=== PATIENT | female | born 1990 | race Caucasian/White ===

== ENCOUNTER 2018-01-20 07:44 | Outpatient (CLI) | payer BC ==
[2018-01-20 11:37] VITALS: BP 132/87; PULSE 100; RESP 16; TEMP 98
--- NOTE | 2018-02-15 08:26 | P.MSEPDOC ---
Presenting Problems - Arrival Data Date of Arrival on Unit: 01/20/18 Time of Arrival on Unit: 07:40 Mode of Transport: Ambulatory Vital Signs - Temperature Temperature: 98.0 F Temperature Source: Oral - Pulse Right Brachial Pulse Rate: 100 Pulse Assessment Method: Automatic Cuff - Respirations Respiratory Rate: 16 Oxygen Delivery Method: Room Air O2 Sat by Pulse Oximetry: 97 - Blood Pressure Right Arm Blood Pressure: 132/87 Blood Pressure Mean: 102 Blood Pressure Source: Automatic Cuff Disposition - Disposition Discharge Date: 01/20/18 Discharge Time: 08:55 I agree with the RN Medical Screening Exam: Yes Risk & Benefit of care provided described in d/c instruction: Yes Diagnosis: FALSE LABOR AT OR AFTER 37 COMPLETED WEEKS OF GESTATION
== END 2018-01-20 08:55 | disposition home or self-care (01) ==
LOC: FBPOP 07:44
PROVIDERS: ATTEND Obstetrics & Gynecology Obstetrics
DX: O47.1 False labor at or after 37 completed weeks of gestation (principal); Z3A.00 Weeks of gestation of pregnancy not specified
CPT/HCPCS: 59025; 99213

== ENCOUNTER 2018-01-20 16:56 | Outpatient (CLI) | payer BC ==
[2018-01-20 18:07] VITALS: PULSE 96; RESP 17; TEMP 98.4
[2018-01-20 18:33] VITALS: BP 134/86
--- NOTE | 2018-02-15 08:23 | P.MSEPDOC ---
Presenting Problems - Arrival Data Date of Arrival on Unit: 01/20/18 Time of Arrival on Unit: 16:56 Mode of Transport: Ambulatory - Complaint OB-Reason for Admission/Chief Complaint: Possible Onset of Labor Comment: pt reports increase in contraction frequency and intensity since being dcd earlier today, cervical exam revealed same exam as when pt left earlier today Medical History - Information : 1 Para: 0 Term: 0 : 0 Abortions: Spontaneous or Elective: 0 Number of Living Children: 0 - Gestational Age Gestational Age by IRMA (wks/days): 39 Weeks and 5 Days Review of Systems - Review of Systems Constitutional: No problems Breast: No problems ENT: No problems Cardiovascular: No problems Respiratory: No problems Gastrointestinal: No problems Genitourinary: No problems Musculoskeletal: No problems Neurological: No problems Skin: No problems Vital Signs - Temperature Temperature: 98.4 F Temperature Source: Oral - Pulse Right Brachial Pulse Rate: 96 Pulse Assessment Method: Automatic Cuff - Respirations Respiratory Rate: 17 Oxygen Delivery Method: Room Air O2 Sat by Pulse Oximetry: 100 - Blood Pressure Right Arm Blood Pressure: 134/86 Blood Pressure Mean: 102 Blood Pressure Source: Automatic Cuff Medical Screen Scoring (Pre) - Cervical Exam Dilation: 1-3 cm = 1 Effacement: More than 50% = 2 Membranes: Intact - Uterine Contractions Frequency: > or = 36 weeks =2 Duration: > 40 seconds = 2 Intensity: N/A - Maternal Vital Signs Maternal Temperature: N/A Maternal Blood Pressure: N/A Signs of Preeclampsia: N/A Maternal Respirations: N/A - Pain Assessment Pain Location and Character: Abdomen Pain Scale Used: Numeric (1 - 10) Pain Intensity: 8 Pain Management Goal: 3 Pain Description: *Acute, Cramping Pain Radiation Location: none Pain Frequency: Intermittent Pain Duration: 1 Pain Duration Units: Hours Pain Behavior: Facial Grimacing Pain Aggravating Factors: Contractions - Maternal Trauma Maternal Trauma: N/A - Assessment Baseline FHR: 145 Heart Rate - NICHD Category: Category I (Normal) = 0 NST: Reactive Position: N/A Station: N/A - Total Score Total Score (Pre): 7 - Level of Risk Level of Risk: Medium (6-9) Physician Notification (Pre) - Physician Notified Physician Notified Date: 01/20/18 Physician Notified Time: 18:17 Physician/Practitioner Notifed:: Dr Coulter Spoke With: Dr Coulter New Order Received: Yes (dc home) - Notification Comment Comment: pt has appt scheduled for tomorrow, 8-[address] Sharp Disposition - Disposition OB Disposition: Discharge to home, Written follow up instructions reviewed Discharge Date: 01/20/18 Discharge Time: 18:20 I agree with the RN Medical Screening Exam: Yes Risk & Benefit of care provided described in d/c instruction: Yes Diagnosis: FALSE LABOR AT OR AFTER 37 COMPLETED WEEKS OF GESTATION
== END 2018-01-20 18:20 | disposition home or self-care (01) ==
LOC: FBPOP 16:56
PROVIDERS: ATTEND Obstetrics & Gynecology
DX: O47.1 False labor at or after 37 completed weeks of gestation (principal); Z3A.39 39 weeks gestation of pregnancy
CPT/HCPCS: 59025; 99213

== ENCOUNTER 2018-01-21 00:26 | Inpatient (IN) | payer BC ==
[2018-01-21] MEDS ORDERED: LACTATED RINGERS 1,000 ML IV SCH (00:45)
[2018-01-21] MEDS ORDERED: LIDOCAINE 1% (PF) 10 MG/ML (30 ML SDV) SQ PRN (00:45)
[2018-01-21] MEDS ORDERED: TERBUTALINE 1 MG/ML VIAL SQ PRN (00:45)
[2018-01-21] MEDS ORDERED: CARBOPROST TROMETHAMINE 250 MCG/ML 1 ML AMP IM PRN (00:45)
[2018-01-21] MEDS ORDERED: OXYTOCIN 10 UNIT/ML 1 ML VIAL IM PRN (00:45)
[2018-01-21] MEDS ORDERED: METHYLERGONOVINE 0.2 MG/ML 1 ML AMP IM PRN (00:45)
[2018-01-21] MEDS ORDERED: PENICILLIN G POTASSIUM 5,000,000 UNIT in DEXTROSE 5% IN WATER 100 ML IVPB ONE ×2 (01:00)
[2018-01-21 01:03] LABS: Basophils % (A) 0 %; Eosinophils # (A) 0.1 k/uL (0-0.7); Eosinophils % (A) 0 %; HCT 44.6 % (34.0-46.0); HGB 15.4 gm/dL (11.4-16.0); Lymphocytes # (A) 2.6 k/uL (1.0-4.8); Lymphocytes % (A) 11 %; MCH 29.6 pg (25.0-35.0); MCHC 34.5 g/dL (31.0-37.0); Mean Platelet Volume 7.6; Monocytes # (A) 0.7 k/uL (0-1.0); Monocytes % (A) 3 %; Neutrophils # (A) 19.4 k/uL (1.3-7.7); Neutrophils % (A) 84 %; Platelet Count 243 k/uL (150-450); RBC 5.19 m/uL (3.80-5.40); RDW 12.5 % (11.5-15.5)
[2018-01-21] MEDS: LACTATED RINGERS 1,000 ML IV SCH ×2 (01:22→04:34)
[2018-01-21] MEDS ORDERED: ROPIVACAINE 100 MG, fentaNYL (PF) 200 MCG in SODIUM CHLORIDE 0.9% 76 ML EPIDURAL ONE (01:24)
[2018-01-21] MEDS: PENICILLIN G POTASSIUM 2,500,000 UNIT in DEXTROSE 5% IN WATER 100 ML IVPB SCH ×4 (05:36→09:30)
[2018-01-21] MEDS ORDERED: OXYTOCIN 20 UNITS/1000 ML NS 1,000 ML IV SCH ×2 (08:00→12:15)
--- NOTE | 2018-01-21 08:18 | P.HPOB ---
History of Present Illness H&P Date: 01/21/18 Chief Complaint: IUP at 39-6/7 weeks, active labor This is a 27-year-old 1 para 0 at 39-6/7 weeks that presents with complaints of regular strong contractions. Patient denies loss of fluid or vaginal bleeding. She has been receiving routine care since the first trimester with myself. On blood work showed a blood type of B+, rubella immune, hepatitis B surface antigen negative, RPR nonreactive, HIV negative, GBS pos. Review of Systems Constitutional: Reports fatigue, Denies chills, Denies fever Respiratory: Denies cough Gastrointestinal: Denies constipation, Denies diarrhea Genitourinary: Reports Past Medical History Past Medical History: Asthma Additional Past Medical History / Comment(s): childhood asthma History of Any Multi-Drug Resistant Organisms: None Reported Past Surgical History: No Surgical Hx Reported Past Anesthesia/Blood Transfusion Reactions: No Reported Reaction Past Psychological History: No Psychological Hx Reported Smoking Status: Never smoker Past Alcohol Use History: None Reported Past Drug Use History: None Reported - Past Family History Mother Family Medical History: No Reported History Medications and Allergies Home Medications Medication Instructions Recorded Confirmed Type Pnv,Calcium 72/Iron/Folic Acid 1 tab PO DAILY 01/20/18 01/21/18 History [ Plus Tablet] Allergies Allergy/AdvReac Type Severity Reaction Status Date / Time No Known Allergies Allergy Verified 01/21/18 00:45 Exam Osteopathic Statement: *. No significant issues noted on an osteopathic structural exam other than those noted in the History and Physical/Consult. Vital Signs Temp Pulse Resp BP Pulse Ox 01/21/18 00:37 97.0 F L 107 H 18 131/90 100 Intake and Output 01/20/18 01/21/18 01/21/18 22:59 06:59 14:59 Intake Total 1100 Output Total 500 Balance 600 Intake: Intake, IV Titration 1100 Amount Lactated Ringers 1,000 ml 1000 @ 125 mls/hr IV [facility] Rx#:[id number] Penicillin G Potassium 5, 100 000,000 unit In Dextrose 5% in Water 100 ml @ 100 mls/hr IVPB ONCE ONE Rx#: [id number] Output: Urine 300 Emesis 200 Other: Weight 86.183 kg - OBG Physical Exam Abdomen: gravid Cervix: 6/100/-2 Uterus: enlarged (appropriate for GA) Results Result Diagrams: 01/21/18 00:50 Abnormal Lab Results - Last 24 Hours (Table) 01/21/18 Range/Units 00:50 WBC 23.0 H (3.8-10.6) k/uL Neutrophils # 19.4 H (1.3-7.7) k/uL Assessment and Plan (1) Term Current Visit: Yes Status: Acute Code(s): Z34.80 - ENCOUNTER FOR SUPRVSN OF NORMAL , UNSP TRIMESTER SNOMED Code(s): 97240097 (2) Positive GBS test Current Visit: Yes Status: Acute Code(s): B95.1 - STREPTOCOCCUS, GROUP B, CAUSING DISEASES CL[facility]SD [facility] SNOMED Code(s): 3152299635542 Plan: Admit to labor and delivery, antibiotics for group beta strep positive, anticipate spontaneous vaginal delivery later today.
[2018-01-21] MEDS ORDERED: WITCH HAZEL 1 EACH MED..PAD TOPICAL PRN (12:02)
[2018-01-21] MEDS ORDERED: BENZOCAINE/MENTHOL SPRAY 1 GM/SPRAY AEROSOL TOPICAL PRN (12:02)
[2018-01-21] MEDS ORDERED: diphenhydrAMINE 25 MG CAP PO PRN (12:02)
[2018-01-21] MEDS ORDERED: SIMETHICONE 80 MG CHEWABLE PO PRN (12:02)
[2018-01-21] MEDS ORDERED: ACETAMINOPHEN TAB 325 MG TAB PO PRN (12:02)
[2018-01-21] MEDS ORDERED: HYDROCORTISONE 2.5% RECTAL CREAM 30 GM TUBE RECTAL PRN (12:02)
[2018-01-21] MEDS ORDERED: ZOLPIDEM 5 MG TAB PO PRN (12:02)
[2018-01-21] MEDS ORDERED: diphenhydrAMINE 50 MG CAP PO PRN (12:02)
[2018-01-21] MEDS ORDERED: diphenhydrAMINE 50 MG/ML 1 ML VIAL IVP PRN ×2 (12:02)
[2018-01-21] MEDS ORDERED: LANOLIN CREAM 5 GM TUBE TOPICAL PRN (12:02)
--- NOTE | 2018-01-21 12:06 | P.PROBDLV ---
Vaginal Delivery Note - . Vaginal Delivery Note: This is a very pleasant 27-year-old 1 para 0 that was admitted overnight for active labor. Patient was started on penicillin G for known group B beta strep positive culture at 36 weeks. Patient progressed slowly through labor eventually Pitocin augmentation of labor was begun, amniotomy was performed and meconium-stained fluid was noted. Patient progressed to complete and had a normal spontaneous vaginal delivery of a viable male infant in the occiput posterior presentation. time of 1132, weight of 7 lbs. 7 oz., Apgars of 8 and 9 at one and 5 minutes respectively. The cord was then doubly clamped and cut pediatrics was in the room to receive the baby given the meconium-stained fluid. No cord blood was needed given she was Rh+. The placenta was then delivered spontaneously intact with three-vessel cord noted. Afterwards the patient's vaginal vault was inspected and a second-degree vaginal laceration with bilateral sulcal tears was noted. This was repaired in the usual fashion with 3-0 Rapide. A left labial laceration was noted and this was repaired with 4-0 chromic in a [id number] suture. Hemostasis was appreciated after all sutures had been placed. Uterus was noted to be firm and below the umbilicus. Estimated blood loss 200 mL, all sponge and needle counts are correct 2 Patient and infant tolerated delivery well and are resting comfortably
[2018-01-21] MEDS: IBUPROFEN 600 MG TAB PO PRN ×2 (16:08→23:36)
[2018-01-22] MEDS: LACTATED RINGERS 1,000 ML IV SCH ×3 (01:47→01:55)
[2018-01-22] MEDS: SENNOSIDES-DOCUSATE SODIUM 1 EACH TAB PO SCH ×3 (01:47→20:42)
[2018-01-22] MEDS: PENICILLIN G POTASSIUM 2,500,000 UNIT in DEXTROSE 5% IN WATER 100 ML IVPB SCH ×4 (01:53→01:54)
--- NOTE | 2018-01-22 10:07 | P.DS ---
Providers Date of admission: 01/21/18 00:41 Expected date of discharge: 01/22/18 Attending physician: Doris Sharp Primary care physician: Stated None - Discharge Diagnosis(es) (1) Term Current Visit: Yes Status: Acute (2) Positive GBS test Current Visit: Yes Status: Acute (3) Status post normal vaginal delivery Current Visit: Yes Status: Acute (4) Occiput posterior presentation of fetus Current Visit: Yes Status: Acute Hospital Course: This is a very pleasant 27-year-old 1 para 0 that was admitted to labor and delivery for active labor on 813. Patient was known GBS positive and started on penicillin G. Patient progressed slowly through labor and eventually Pitocin augmentation of labor was begun and amniotomy was performed revealing meconium-stained fluid. Patient had got an epidural during the labor process. She progressed to complete began pushing and had a normal spontaneous vaginal delivery of a viable male infant in occiput posterior presentation at 1132, weight 7 lbs. 7 oz., Apgars of 8 and 9 at one and 5 minutes respectively. Patient did sustain a second-degree vaginal laceration with bilateral sulcal tears during delivery this was repaired in the usual fashion without difficulty and on day #1 she is feeling well. She states her lochia is moderate , she is struggling with breast-feeding at this time., And is pumping. She is ambulating and voiding without difficulty and tolerating a regular diet without nausea or vomiting. She does wish discharge home later this evening. Patient Condition at Discharge: Good Plan - Discharge Summary New Discharge Prescriptions: No Action Pnv,Calcium 72/Iron/Folic Acid [ Plus Tablet] 1 tab PO DAILY Discharge Medication List Pnv,Calcium 72/Iron/Folic Acid [ Plus Tablet] 1 tab PO DAILY 01/20/18 [ History] Follow up Appointment(s)/Referral(s): Doris Sharp DO [Doctor of Osteopathic Medicine] - 4 Weeks Patient Instructions/Handouts: Vaginal Delivery (DC), Vaginal Delivery (GEN) Activity/Diet/Wound Care/Special Instructions: No tub baths or intercourse until 6 weeks Discharge Disposition: HOME SELF-CARE
[2018-01-22] MEDS: PRENATAL VIT-IRON-FOLIC ACID 1 EACH CAP PO SCH (11:34)
[2018-01-22] MEDS: IBUPROFEN 600 MG TAB PO PRN ×2 (13:08→18:30)
[2018-01-23] MEDS: IBUPROFEN 600 MG TAB PO PRN (07:38)
[2018-01-23] MEDS: SENNOSIDES-DOCUSATE SODIUM 1 EACH TAB PO SCH (07:39)
--- NOTE | 2018-01-23 08:28 | P.PNOBGVD ---
Subjective - Subjective Principal diagnosis: PPD 2 Interval history: Gen. has done well overnight. She was struggling with breast-feeding and decided to stay until day #2. She feels that she is able to work with him a better with an SNS shield and wishes discharge home today. She is ambulating and voiding without difficulty. She is tolerating a regular diet without nausea or vomiting. She denies any concerns with her self. Patient reports: Reports appetite normal, Reports voiding normally, Reports pain well controlled, Reports ambulating normally : doing well, nursing well Objective - Latest Vital Signs Latest vital signs: Vital Signs Temp Pulse Resp BP Pulse Ox 01/23/18 00:00 97.8 F 71 16 120/70 18 15:23 98.7 F 78 18 118/68 99 - Exam Extremities: Present: normal Abdomen: Present: normal appearance, soft Uterus: Present: normal, firm Assessment and Plan (1) Term Current Visit: Yes Status: Acute Code(s): Z34.80 - ENCOUNTER FOR SUPRVSN OF NORMAL , UNSP TRIMESTER SNOMED Code(s): 04636061 (2) Positive GBS test Current Visit: Yes Status: Acute Code(s): B95.1 - STREPTOCOCCUS, GROUP B, CAUSING DISEASES [facility] SNOMED Code(s): 5154971032442 (3) Status post normal vaginal delivery Current Visit: Yes Status: Acute Code(s): TLD5471 - SNOMED Code(s): 451263584 (4) Occiput posterior presentation of fetus Current Visit: Yes Status: Acute Code(s): O64.0XX0 - OBSTRUCTED LABOR DUE TO INCMPL ROTATION OF HEAD, UNSP SNOMED Code(s): 02260826 Plan: We will plan discharge home today, follow-up instructions were reviewed with patient yesterday she can take [id number] Motrin 600 mg every 6 hours for discomfort as needed. She is to follow-up with me in 4 weeks for routine check. She is urged to call if anything should, prior to that appointment and be seen sooner. She states understanding and all questions were answered today.
[2018-01-23 09:31] VITALS: BP 118/67; PULSE 63; RESP 18; TEMP 98.5
[2018-01-23] MEDS: PRENATAL VIT-IRON-FOLIC ACID 1 EACH CAP PO SCH (11:12)
== END 2018-01-23 12:50 | disposition home or self-care (01) | DRG 775 ==
LOC: FBPOP 00:26 → 4FBP 00:41
PROVIDERS: ADMIT Obstetrics & Gynecology; ATTEND Obstetrics & Gynecology Obstetrics
PROC: 10E0XZZ Delivery of Products of Conception, External Approach (ICD-10-PCS; principal; 2018-01-21)
PROC: 0KQM0ZZ Repair Perineum Muscle, Open Approach (ICD-10-PCS; 2018-01-21)
PROC: 00HU33Z Insertion of Infusion Device into Spinal Canal, Percutaneous Approach (ICD-10-PCS; 2018-01-21)
PROC: 3E0R3BZ Introduction of Anesthetic Agent into Spinal Canal, Percutaneous Approach (ICD-10-PCS; 2018-01-21)
DX: O77.0 Labor and delivery complicated by meconium in amniotic fluid (principal); O71.4 Obstetric high vaginal laceration alone; O99.824 Streptococcus B carrier state complicating childbirth; Z3A.39 39 weeks gestation of pregnancy; Z37.0 Single live birth; Z87.09 Personal history of other diseases of the respiratory system
CPT/HCPCS: 59025; 85025; 99213

== ENCOUNTER 2020-11-02 06:00 | Inpatient (IN) | payer BC ==
[2020-11-02 06:36] VITALS: RESP 16
[2020-11-02] MEDS ORDERED: METHYLERGONOVINE 0.2 MG/ML 1 ML AMP IM PRN (06:36)
[2020-11-02] MEDS ORDERED: TERBUTALINE 1 MG/ML VIAL SQ PRN (06:36)
[2020-11-02] MEDS ORDERED: OXYTOCIN 10 UNIT/ML 1 ML VIAL IM PRN (06:36)
[2020-11-02] MEDS ORDERED: LIDOCAINE 0.5% (PF) 5 MG/ML (50 ML SDV) SQ PRN (06:36)
[2020-11-02] MEDS ORDERED: CARBOPROST TROMETHAMINE 250 MCG/ML 1 ML AMP IM PRN (06:36)
[2020-11-02] MEDS ORDERED: OXYTOCIN 30 UNITS/500 ML NS 30 UNIT in SALINE 1 500ML.BAG IV SCH ×2 (06:45→18:00)
[2020-11-02 07:03] LABS: Basophils % (A) 0 %; Eosinophils # (A) 0.1 k/uL (0-0.7); Eosinophils % (A) 1 %; HCT 34.2 % (34.0-46.0); Lymphocytes % (A) 20 %; MCH 29.2 pg (25.0-35.0); MCHC 35.2 g/dL (31.0-37.0); Mean Platelet Volume 7.9; Monocytes # (A) 0.4 k/uL (0-1.0); Monocytes % (A) 4 %; Neutrophils # (A) 7.7 k/uL (1.3-7.7); Neutrophils % (A) 75 %; Platelet Count 229 k/uL (150-450); RBC 4.12 m/uL (3.80-5.40); RDW 13.5 % (11.5-15.5); WBC 10.3 k/uL (3.8-10.6)
[2020-11-02] MEDS: LACTATED RINGERS 1,000 ML IV SCH ×2 (07:11→13:05)
[2020-11-02] MEDS ORDERED: SODIUM CHLORIDE 0.9% 100 ML BAG ONE (13:11)
[2020-11-02] MEDS ORDERED: ROPIVACAINE 5MG/ML 20ML VIAL ONE (13:11)
[2020-11-02] MEDS ORDERED: fentaNYL (PF) 50 MCG/ML 5 ML AMP ONE (13:11)
--- NOTE | 2020-11-02 17:48 | P.HPOB ---
History of Present Illness H&P Date: 11/02/20 Chief Complaint: IUP at 39 weeks This is a 21-year-old at 39 weeks of that presents for elective induction of labor. Patient notes good movement denies contractions or vaginal bleeding. Patient has been receiving routine care which has been essentially uncomplicated. Patient did have COVID-19 during the . On bloodwork patient has a blood type of B+, rubella status immune, B surface antigen negative, HIV negative, group beta strep negative. Review of Systems Constitutional: Denies fatigue, Denies fever Ears, nose, mouth and throat: Denies headache Cardiovascular: Reports leg edema Respiratory: Denies dyspnea Gastrointestinal: Denies constipation, Denies diarrhea, Denies nausea, Denies vomiting Genitourinary: Reports Past Medical History Past Medical History: Asthma Additional Past Medical History / Comment(s): childhood asthma History of Any Multi-Drug Resistant Organisms: None Reported Past Surgical History: No Surgical Hx Reported Past Anesthesia/Blood Transfusion Reactions: No Reported Reaction Past Psychological History: No Psychological Hx Reported Smoking Status: Never smoker Past Alcohol Use History: None Reported Past Drug Use History: None Reported - Past Family History Mother Family Medical History: No Reported History Medications and Allergies Home Medications Medication Instructions Recorded Confirmed Type Pnv,Calcium 72/Iron/Folic Acid 1 tab PO DAILY 01/20/18 11/02/20 History [ Plus Tablet] Allergies Allergy/AdvReac Type Severity Reaction Status Date / Time No Known Allergies Allergy Verified 11/02/20 06:27 Exam Osteopathic Statement: *. No significant issues noted on an osteopathic structural exam other than those noted in the History and Physical/Consult. Vital Signs Temp Pulse Resp BP Pulse Ox 11/02/20 06:27 98.4 F 89 16 121/80 98 Intake and Output 11/01/20 11/02/20 11/02/20 22:59 06:59 14:59 Other: Weight 95.254 kg Targeted physical exam is performed in this date and organic section technical lead a well-nourished well-developed female in no acute distress, breathing is noted to be nonlabored, heart has a regular rate and rhythm, abdomen is gravid and appropriate for gestational age, on cervical exam she is 2/70/-2 station. heart tones are category 1 and she is ced irregularly. Results Result Diagrams: 11/02/20 06:50 Assessment and Plan (1) Term Current Visit: No Status: Acute Code(s): Z34.80 - ENCOUNTER FOR SUPRVSN OF NORMAL , UNSP TRIMESTER SNOMED Code(s): 56075731 Plan: 21-year-old at 39 weeks of gestation presents for elective induction of labor. Pitocin induction of labor is begun per hospital protocol. Options for analgesia including Stadol and epidural are discussed with patient questions are answered and she will consider both. Anticipate spontaneous vaginal delivery later today.
[2020-11-02] MEDS ORDERED: diphenhydrAMINE 25 MG CAP PO PRN (17:50)
[2020-11-02] MEDS ORDERED: diphenhydrAMINE 50 MG/ML 1 ML VIAL IVP PRN ×2 (17:50)
[2020-11-02] MEDS ORDERED: SIMETHICONE 80 MG CHEWABLE PO PRN (17:50)
[2020-11-02] MEDS ORDERED: BENZOCAINE/MENTHOL SPRAY 1 GM/SPRAY AEROSOL TOPICAL PRN (17:50)
[2020-11-02] MEDS ORDERED: ZOLPIDEM 5 MG TAB PO PRN (17:50)
[2020-11-02] MEDS ORDERED: ACETAMINOPHEN TAB 325 MG TAB PO PRN (17:50)
[2020-11-02] MEDS ORDERED: diphenhydrAMINE 50 MG CAP PO PRN (17:50)
[2020-11-02] MEDS ORDERED: HYDROCORTISONE 2.5% RECTAL CREAM 30 GM TUBE RECTAL PRN (17:50)
[2020-11-02] MEDS ORDERED: LANOLIN CREAM 5 GM TUBE TOPICAL PRN (17:50)
--- NOTE | 2020-11-02 17:50 | P.PROBDLV ---
Vaginal Delivery Note - . Vaginal Delivery Note: This is a 29-year-old presented to labor and delivery for elective induction of labor. Patient is 39 weeks and 0 days with an estimated due date of 11/09. Patient had uncomplicated care with the exception of a COVID- 19 infection. Patient underwent testing which has been reassuring. Patient was admitted to labor and delivery and Pitocin induction of labor was begun per hospital protocol. Patient underwent amniotomy and clear fluid was obtained. Patient progressed through labor eventually becoming uncomfortable and requesting epidural placement. Epidural was placed without difficulty by the anesthesia department. Patient progressed to complete began pushing and had a normal spontaneous vaginal delivery of a viable male infant at 1716, weight of 7 pounds 3.5 ounces and Apgars of 9 and 9 at one and 5 minutes respectively. After a two-minute delayed interval cord was doubly clamped and cut and the placenta was delivered spontaneously intact with a three-vessel cord being noted. On inspection the patient's vaginal vault a second degree midline laceration was appreciated. This was repaired in the usual fashion with 3-0 Rapide. In addition a left labial inclusion cyst was excised. Hemostasis was appreciated after closure. The uterus is noted be firm and below the umbilicus. Estimated blood loss 200 mL. All counts are noted to be correct 2 at the end of the procedure. Patient and tolerated delivery well and are resting comfortably.
[2020-11-02] MEDS: IBUPROFEN 600 MG TAB PO SCH (19:49)
[2020-11-02] MEDS: SENNOSIDES-DOCUSATE SODIUM 1 EACH TAB PO SCH (20:08)
[2020-11-03] MEDS: IBUPROFEN 600 MG TAB PO SCH ×3 (04:24→11:20)
[2020-11-03] MEDS: SENNOSIDES-DOCUSATE SODIUM 1 EACH TAB PO SCH (08:02)
--- NOTE | 2020-11-03 08:45 | P.DS ---
Providers Date of admission: 11/02/20 06:06 Expected date of discharge: 11/03/20 Attending physician: Doris Sharp Primary care physician: Stated None - Discharge Diagnosis(es) (1) Term Current Visit: No Status: Acute (2) Second degree perineal laceration during delivery Current Visit: Yes Status: Acute (3) Status post normal vaginal delivery Current Visit: No Status: Acute Hospital Course: This is a 29-year-old G2 now P2 status post normal spontaneous vaginal delivery. Patient was admitted to labor and delivery for elective induction yesterday at 39 weeks of . Patient was admitted Pitocin induction of labor was begun per hospital protocol. Patient progressed through labor amniotomy was performed and clear fluid was obtained. Patient did request epidural placement and anesthesia placed epidural without difficulty. Patient progressed to complete began pushing and had a normal spontaneous vaginal delivery of a viable male at 1716, weight of 7 pounds 3.5 ounces and Apgars of 9 and 9 at one and 5 minutes respect weight. Patient's post course has been uneventful. On this day #1 she is involuting and voiding without difficulty. She is tolerating a regular diet without nausea or vomiting. She would like discharge home. She is bottle feeding. Patient Condition at Discharge: Good Plan - Discharge Summary Discharge Rx Participant: No New Discharge Prescriptions: No Action Pnv,Calcium 72/Iron/Folic Acid [ Plus Tablet] 1 tab PO DAILY Discharge Medication List Pnv,Calcium 72/Iron/Folic Acid [ Plus Tablet] 1 tab PO DAILY 01/20/18 [History] Follow up Appointment(s)/Referral(s): Doris Sharp DO [Doctor of Osteopathic Medicine] - 4 Weeks Patient Instructions/Handouts: Vaginal Delivery (GEN), Vaginal Delivery (DC) Discharge Disposition: HOME SELF-CARE
[2020-11-03] MEDS ORDERED: PRENATAL VIT-IRON-FOLIC ACID 1 EACH CAP PO SCH (09:00)
[2020-11-03 16:56] VITALS: BP 112/69; PULSE 83; TEMP 97.9
== END 2020-11-03 18:40 | disposition home or self-care (01) | DRG 807 ==
LOC: 4FBP 06:06
PROVIDERS: ADMIT Obstetrics & Gynecology Obstetrics; ATTEND Obstetrics & Gynecology Obstetrics
PROC: 10E0XZZ Delivery of Products of Conception, External Approach (ICD-10-PCS; principal; 2020-11-02)
PROC: 0KQM0ZZ Repair Perineum Muscle, Open Approach (ICD-10-PCS; 2020-11-02)
DX: O70.1 Second degree perineal laceration during delivery (principal); Z37.0 Single live birth; O99.52 Diseases of the respiratory system complicating childbirth; J45.909 Unspecified asthma, uncomplicated; Z3A.39 39 weeks gestation of pregnancy
CPT/HCPCS: 85025; 86850; 86900; 86901; 88307